=== PATIENT | female | born 1985 | race Caucasian/White ===

== ENCOUNTER → 2016-06-10 | Outpatient (CLI) | payer BC ==
[2016-06-10 08:19] LABS: Basophils # (auto) 0.2 uL; Basophils % (auto) 2.2 % (0.0-2.0); Eosinophils # (auto) 0.1 uL; Eosinophils % (auto) 1.1 % (0.0-7.0); Hematocrit 37.9 % (36.0-46.0); Hemoglobin 12.4 g/dL (12.2-16.2); Lymphocytes # (auto) 1.2 uL; Lymphocytes % (auto) 13.8 % (10.0-50.0); Mean Corpuscular Hemoglobin 32.1 pg (28.0-32.0); Mean Corpuscular Hgb Conc. 32.8 g/dL (32.0-36.0); Mean Corpuscular Volume 97.7 fL (80.0-100.0); Mean Platelet Volume 8.8 fL (7.4-10.4); Monocytes # (auto) 0.5 uL; Monocytes % (auto) 5.1 % (0.0-12.0); Neutrophils % (auto) 77.8 % (37.0-80.0); Platelet Count (auto) 187 10^3/uL (140-450); Red Cell Distribution Width 11.8 % (11.6-16.0)
== END | disposition home or self-care (01) ==
LOC: LAB 07:57
PROVIDERS: ATTEND Specialist
DX: Z34.00 Encounter for supervision of normal first pregnancy, unspecified trimester (principal); O99.810 Abnormal glucose complicating pregnancy
CPT/HCPCS: 36415; 82951; 85025

== ENCOUNTER → 2016-08-06 | Outpatient (CLI) | payer BC ==
[2016-08-06 11:01] LABS: Basophils # (auto) 0 uL; Basophils % (auto) 0.1 % (0.0-2.0); Eosinophils # (auto) 0 uL; Eosinophils % (auto) 0.1 % (0.0-7.0); Hematocrit 37.9 % (36.0-46.0); Hemoglobin 12.5 g/dL (12.2-16.2); Lymphocytes # (auto) 1.5 uL; Lymphocytes % (auto) 15.3 % (10.0-50.0); Mean Corpuscular Hemoglobin 31.4 pg (28.0-32.0); Mean Corpuscular Volume 95.1 fL (80.0-100.0); Mean Platelet Volume 8.9 fL (7.4-10.4); Monocytes # (auto) 0.5 uL; Monocytes % (auto) 5.4 % (0.0-12.0); Neutrophils # (auto) 7.9 uL; Neutrophils % (auto) 79.1 % (37.0-80.0); Platelet Count (auto) 233 10^3/uL (140-450)
== END | disposition home or self-care (01) ==
LOC: LAB 10:37
PROVIDERS: ATTEND Specialist
DX: Z11.3 Encounter for screening for infections with a predominantly sexual mode of transmission (principal); Z34.00 Encounter for supervision of normal first pregnancy, unspecified trimester; N76.0 Acute vaginitis
CPT/HCPCS: 36415; 85025; 86592; 87081

== ENCOUNTER 2016-08-14 19:54 | Observation (INO) | payer BC | END 2016-08-14 21:40 | disposition home or self-care (01) | DRG 782 | LOC: LDRP 19:54 | PROVIDERS: ADMIT Specialist; ATTEND Specialist | DX: O26.873 Cervical shortening, third trimester (principal); Z3A.36 36 weeks gestation of pregnancy | CPT/HCPCS: 59025; 76818; 81002; G0378 ==

== ENCOUNTER 2016-08-16 09:57 | Observation (INO) | payer BC | END 2016-08-16 11:50 | disposition home or self-care (01) | DRG 782 | LOC: LDRP 09:57 | PROVIDERS: ADMIT Specialist; ATTEND Specialist | DX: O40.3XX0 Polyhydramnios, third trimester, not applicable or unspecified (principal); Z3A.36 36 weeks gestation of pregnancy | CPT/HCPCS: 76818; G0378 ==

== ENCOUNTER 2016-08-19 08:40 | Observation (INO) | payer BC | END 2016-08-19 10:05 | disposition home or self-care (01) | DRG 775 | LOC: LDRP 08:40 | PROVIDERS: ADMIT Specialist; ATTEND Specialist | DX: O40.3XX0 Polyhydramnios, third trimester, not applicable or unspecified (principal); O69.5XX0 Labor and delivery complicated by vascular lesion of cord, not applicable or unspecified; Z3A.37 37 weeks gestation of pregnancy | CPT/HCPCS: 59025; 76818; 81002; G0378 ==

== ENCOUNTER 2016-08-23 10:15 | Observation (INO) | payer BC | END 2016-08-23 11:40 | disposition home or self-care (01) | DRG 775 | LOC: LDRP 10:15 | PROVIDERS: ADMIT Specialist; ATTEND Specialist | DX: O40.3XX0 Polyhydramnios, third trimester, not applicable or unspecified (principal); O69.9XX0 Labor and delivery complicated by cord complication, unspecified, not applicable or unspecified; Z3A.37 37 weeks gestation of pregnancy | CPT/HCPCS: 76818; G0378; 59025; 81002 ==

== ENCOUNTER 2016-08-26 10:15 | Observation (INO) | payer BC ==
[2016-08-26] MEDS ORDERED: PREN-153 OR (12:13)
[2016-08-26] MEDS ORDERED: ASPI81CH43 GT (12:13)
== END 2016-08-26 11:00 | disposition home or self-care (01) | DRG 782 ==
LOC: LDRP 10:15
PROVIDERS: ADMIT Obstetrics & Gynecology; ATTEND Obstetrics & Gynecology
DX: O40.3XX0 Polyhydramnios, third trimester, not applicable or unspecified (principal); Z3A.38 38 weeks gestation of pregnancy
CPT/HCPCS: 59025; 76818; 81002; G0378

== ENCOUNTER 2016-08-30 10:13 | Observation (INO) | payer BC ==
[~2016-08-30 10:13] MED LIST: ASPI81CH43 GT; PREN-153 OR
== END 2016-08-30 12:02 | disposition home or self-care (01) | DRG 782 ==
LOC: LDRP 10:13
PROVIDERS: ADMIT Specialist; ATTEND Specialist
DX: O40.3XX0 Polyhydramnios, third trimester, not applicable or unspecified (principal); Z3A.38 38 weeks gestation of pregnancy
CPT/HCPCS: 59025; 76818; 81002; G0378

== ENCOUNTER 2016-09-02 10:15 | Observation (INO) | payer BC | END 2016-09-02 12:00 | disposition home or self-care (01) | DRG 775 | LOC: LDRP 10:15 | PROVIDERS: ADMIT Obstetrics & Gynecology; ATTEND Obstetrics & Gynecology | DX: O40.3XX0 Polyhydramnios, third trimester, not applicable or unspecified (principal); O69.5XX2 Labor and delivery complicated by vascular lesion of cord, fetus 2; Z3A.38 38 weeks gestation of pregnancy | CPT/HCPCS: 59025; 76818; 81002; G0378 ==

== ENCOUNTER 2016-09-06 13:10 | Observation (INO) | payer BC ==
[~2016-09-06] VITALS: Ht 152.4 cm; Wt 83.0 kg
== END 2016-09-06 14:25 | disposition home or self-care (01) | DRG 782 ==
LOC: LDRP 13:10
PROVIDERS: ADMIT Specialist; ATTEND Specialist
DX: O40.3XX0 Polyhydramnios, third trimester, not applicable or unspecified (principal); Z87.891 Personal history of nicotine dependence; Z3A.39 39 weeks gestation of pregnancy
CPT/HCPCS: 59025; 76818; 81002; G0378

== ENCOUNTER 2016-09-09 10:30 | Observation (INO) | payer BC | END 2016-09-09 11:50 | disposition home or self-care (01) | DRG 782 | LOC: LDRP 10:30 | PROVIDERS: ADMIT Specialist; ATTEND Specialist | DX: O40.3XX0 Polyhydramnios, third trimester, not applicable or unspecified (principal); Z3A.39 39 weeks gestation of pregnancy; Z87.891 Personal history of nicotine dependence | CPT/HCPCS: 59025; 76818; 81002; G0378 ==

== ENCOUNTER 2016-09-11 10:50 | Observation (INO) | payer BC | END 2016-09-11 12:30 | disposition home or self-care (01) | DRG 782 | LOC: LDRP 10:50 | PROVIDERS: ADMIT Specialist; ATTEND Specialist | DX: O62.9 Abnormality of forces of labor, unspecified (principal); O40.3XX0 Polyhydramnios, third trimester, not applicable or unspecified; Z3A.40 40 weeks gestation of pregnancy; Z87.891 Personal history of nicotine dependence | CPT/HCPCS: 59025; 76818; 81002; G0378 ==

== ENCOUNTER 2016-09-13 18:40 | Inpatient (IN) | payer BC ==
[~2016-09-13] VITALS: Ht 152.4 cm; Wt 82.1 kg
[2016-09-13] MEDS ORDERED: LACTATED RINGER'S 1,000 ML IV SCH ×2 (18:45→19:53)
[2016-09-13 19:45] LABS: Basophils # (auto) 0 uL; Basophils % (auto) 0.1 % (0.0-2.0); Eosinophils # (auto) 0 uL; Eosinophils % (auto) 0.3 % (0.0-7.0); Hematocrit 34.9 % (36.0-46.0); Hemoglobin 11.7 g/dL (12.2-16.2); Lymphocytes # (auto) 1.5 uL; Mean Corpuscular Hemoglobin 31.3 pg (28.0-32.0); Mean Corpuscular Hgb Conc. 33.5 g/dL (32.0-36.0); Mean Corpuscular Volume 93.6 fL (80.0-100.0); Mean Platelet Volume 9.9 fL (7.4-10.4); Monocytes # (auto) 0.5 uL; Monocytes % (auto) 5.1 % (0.0-12.0); Neutrophils # (auto) 7.9 uL; Neutrophils % (auto) 79.5 % (37.0-80.0); Platelet Count (auto) 239 10^3/uL (140-450); White Blood Cell 9.9 10^3/uL (4.4-10.8)
[2016-09-13 19:46] LABS: Urine Bilirubin Negative (Negative); Urine Blood Negative /uL (Negative); Urine Glucose Normal (Normal); Urine Ketone Negative (Negative); Urine Nitrite Negative (Negative); Urine RBC 1 /hpf (0 - 4); Urine Squamous Epithelial Cell FEW /hpf (<5); Urine Urobilinogen Normal (Negative); Urine pH 6.5 (5.0-8.0)
[2016-09-13] MEDS ORDERED: LACT. RINGERS/OXYTOCIN 20UNITS 1,000 ML IV SCH (19:53)
[2016-09-13 19:54] LABS: Urine Color Straw (Yellow)
[2016-09-13] MEDS ORDERED: METHYLERGONOVINE MALEATE 0.2 MG/ML AMP IM PRN (20:00)
[2016-09-13] MEDS ORDERED: DERMOPLAST 60ML BOTTLE TOP PRN (20:00)
[2016-09-13] MEDS ORDERED: WITCH HAZEL-GLYCERIN PAD TOP PRN (20:00)
[2016-09-13] MEDS ORDERED: PHISODERM TOP SOLN 240ML BTL TOP PRN (20:00)
[2016-09-13] MEDS ORDERED: LIDOCAINE 2%HCL (LOCAL ANESTH.) INJ 20ML MDV IJ ONE (20:00)
[2016-09-13 20:03] LABS: INR 0.91 (0.9-1.15); Partial Thromboplastin Time 26.6 sec (22.64-33.71); Prothrombin Time 9.8 sec (9.37-12.3)
[2016-09-13 20:16] LABS: Albumin 2.8 g/dL (3.4-5.0); BUN/Creatinine Ratio 9.6; Bilirubin, Total 0.2 mg/dL (0.2-1.0); Calcium 8.9 mg/dL (8.5-10.1); Potassium 3.8 mmol/L (3.5-5.1); Uric Acid 5.3 mg/dL (2.6-6.0)
[2016-09-14] MEDS ORDERED: ePHEDrine SULFATE 50 MG/ML AMP IV ONE ×2 (02:30→03:30)
[2016-09-14] MEDS ORDERED: fentaNYL W ROPIVACAINE 150 ML EPI SCH ×2 (02:30→03:30)
[2016-09-14] MEDS ORDERED: LIDOCAINE HCL 2 %PF INJ 10ML AMP IJ ONE (02:30)
[2016-09-14] MEDS ORDERED: NALOXONE HCL 0.4 MG/ML VIAL IV ONE ×2 (02:30→03:30)
[2016-09-14] MEDS ORDERED: fentaNYL CITRATE 100 MCG/2 ML VL IV ONE ×2 (02:30→03:30)
[2016-09-14] MEDS ORDERED: TERBUTALINE SULFATE 1 MG/ML 1ML VIAL SC ONE (05:00)
[2016-09-14] MEDS ORDERED: IBUPROFEN 600 MG TAB PO PRN (11:15)
[2016-09-14] MEDS ORDERED: ACETAMINOPHEN 325 MG TAB PO PRN (11:15)
[2016-09-14 13:00] VITALS: BP 117/74
[2016-09-14] MEDS: DOCUSATE CALCIUM 240 MG CAP PO SCH (15:29)
[2016-09-14 15:57] VITALS: BP 137/73
[2016-09-14 19:07] VITALS: BP 129/78
[2016-09-14 23:16] VITALS: BP 132/67
[2016-09-15 03:05] VITALS: BP 133/79
[2016-09-15 07:30] VITALS: BP 121/76
[2016-09-15 11:30] VITALS: BP 119/78
[2016-09-15] MEDS: DOCUSATE CALCIUM 240 MG CAP PO SCH (13:25)
== END 2016-09-15 13:35 | disposition home or self-care (01) | DRG 775 ==
LOC: LDRP 18:40 → OBSVTOIN 18:40
PROVIDERS: ADMIT Obstetrics & Gynecology; ATTEND Obstetrics & Gynecology
PROC: 10E0XZZ Delivery of Products of Conception, External Approach (ICD-10-PCS; principal; 2016-09-14)
PROC: 0KQM0ZZ Repair Perineum Muscle, Open Approach (ICD-10-PCS; 2016-09-14)
PROC: 0UQMXZZ Repair Vulva, External Approach (ICD-10-PCS; 2016-09-14)
PROC: 3E0R3CZ (ICD-10-PCS; 2016-09-14)
PROC: 00HU33Z Insertion of Infusion Device into Spinal Canal, Percutaneous Approach (ICD-10-PCS; 2016-09-14)
PROC: 10907ZC Drainage of Amniotic Fluid, Therapeutic from Products of Conception, Via Natural or Artificial Opening (ICD-10-PCS; 2016-09-14)
DX: O48.0 Post-term pregnancy (principal); O71.4 Obstetric high vaginal laceration alone; O40.3XX0 Polyhydramnios, third trimester, not applicable or unspecified; O77.0 Labor and delivery complicated by meconium in amniotic fluid; O71.82 Other specified trauma to perineum and vulva; Z37.0 Single live birth; Z3A.40 40 weeks gestation of pregnancy
CPT/HCPCS: 36415; 59025; 59409; 62282; 80053; 81001; 84550; 85025; 85610; 85730; 86850; 86900; 86901; 94762; 96361; 96365; 96366; G0378; J2590; J3010